=== PATIENT | male | born 1975 | race Caucasian/White ===

== ENCOUNTER 2016-06-23 09:05 | Day surgery (SDC) | payer OTHER ==
[~2016-06-23] VITALS: Ht 188 cm; Wt 100.0 kg
--- NOTE | ~2016-06-23 | OR ---
PATIENT'S NAME: NAEY CHENEY [facility] AGE: 40 Y [address] ROOM: [address] [address] LOCATION: [facility] ADMIT DATE: 06/23/2016 OR/Procedure Report DISCHARGE DATE: FAMILY PHYSICIAN: PHYSICIAN, NO ATTENDING PHYSICIAN: Clive Phillips SURGEON: Clive Phillips MD MANAGER FIELD INVESTIGATIONS: DATE OF PROCEDURE: 06/23/2016 PREOPERATIVE DIAGNOSIS: Left C6-7 disk herniation. POSTOPERATIVE DIAGNOSIS: Left C6-7 disk herniation. OPERATIONS PROPOSED AND PERFORMED: 1. Anterior cervical microdiskectomy, C6-7. 2. Anterior cervical fusion, C6-7. 3. Allograft. 4. Microscope. 5. Plating using the Inion absorbable plate. 6. Fluoroscopy with interpretation. DESCRIPTION OF PROCEDURE: Under general anesthesia, the patient was positioned supine. The neck was extended. The neck and upper chest were prepped and draped in the usual fashion. A curvilinear incision was then carried out extending from the anterior border of the sternomastoid muscle to the midline. The platysma was incised along this line, and we then continued our dissection in the plane between the sternomastoid and the strap muscles retracting the strap muscles away from the midline along with the esophagus and trachea. This got us to the prevertebral fascia. During this dissection, we were medial to the carotid artery and got into the prevertebral fascia. This was cauterized and incised and got us to the vertebral bodies and disk spaces, and a spinal needle was placed in one of the disk spaces. Lateral C- spine x-ray obtained showed that we were at the C6-C7 level. We made an incision into the disk so as to munir it. Next, the longus colli muscles were dissected away from their attachments to the vertebral bodies and the self- retaining retractor, the Dewaterer Operator was then used for retraction, making sure that the transverse blades were under the longus colli muscles. Next, the incision into the disk space was extended, took out as much disk as we could grossly. Next, the distractor rods were then screwed to the C6 and C7 vertebral bodies and the disk space was distracted. The microscope was brought in. With the aid of the microscope, we completely removed the disk and also had to remove the posterior longitudinal ligament and on exploring the neural foramina on the left side, there was a small fragment of disk material in the foramen that we were able to tease out and further exploration of the foramen did not yield any further disk material. The wound was PATIENT'S NAME: NAYE CHENEY [facility] AGE: 40 Y [address] ROOM: [place] [address] LOCATION: [facility] ADMIT DATE: 06/23/2016 OR/Procedure Report DISCHARGE DATE: FAMILY PHYSICIAN: NETTIE JACK ATTENDING PHYSICIAN: Clive Phillips thoroughly irrigated with bacitracin irrigation. Hemostasis was achieved by using Gelfoam that was soaked in thrombin and this aided the hemostasis. Next, we then removed the microscope and using the headlight, we he got the sizer, tapped it into the empty disk space in order to get the appropriate size allograft. We used the allograft that was 8 mm in height. We then tapped this into the empty disk space. After that was done, we released the distraction. We removed the screws, filled the space, the hole created by the screws with bone wax. Next, the soft tissue was removed from the anterior- inferior and the anterior-superior portions of the C6 and C7 vertebral bodies respectively. There were some osteophytes in the anterior-inferior portion of C6, which we removed. Next, we then got a template, which we used to get the appropriate length. Plate, we used a 29 mm plate. Next, we then brought the plate and put the plate in front of the vertebral bodies across the disk space. Used the plate holding pins to hold the plate in position. Next, the double-barrel guide was then placed over the pin and into the second hole, went ahead and drilled, tapped the vertebral body through the hole in the plate. Next, we left the tap in position, removed the plate holding pins on the opposite side and did the same thing with the guide and the pin was removed with still using the guide and then we drilled and tapped and then put the bone. The screw into screwed the plate onto the vertebral body. The tap on the other side was then removed and we put the screws in. Similar procedure was carried out over the C7 level and following this, we got a lateral fluoro of the C-spine and it shows that the graft as well as the screws and plate were in good position. The wound was thoroughly irrigated with bacitracin irrigation and closed in layers, first the platysma and then the skin. The patient tolerated the procedure well and was taken to the recovery room. MD ANGELA ROSALES/brody /[id number] d: 06/23/16 1728 t: 06/27/16 1206, OPERATIVE SUMMARY
[~2016-06-23 09:05] MED LIST: ASPIRIN325 MG PO; ROLAIDS CHEWAB1 EACH PO
--- NOTE | 2016-06-23 20:21 | NUR ---
Significant Event: TO ROOM AT 1435, C/O SLIGHT NUMBNESS L) INDEX FINGER, HAD PRE OP. CSM ALL EXTREM OK, DRSG D/I TO R)ANT NECK. VOIDING IN [place] [facility], HAD PERCOCET AND BENADRYL IN PACU....PERCOCET ORDER CHANAGED TO NORCO DUE TO ITCHING....HAD NORCO 2 TAB AT 1750... Follow up:
--- NOTE | 2016-06-24 07:11 | NUR ---
Significant Event: Dressing is clean, dry and intact. L) pointer finger is numb, but states that this is not new. 1 assist with transfers. Voids without difficulty. [place] last at 0559. Follow up:
[2016-06-24] MEDS ORDERED: FLEXERIL10 MG PO (12:56)
[2016-06-24] MEDS ORDERED: PERCOCET 5-3251 EACH PO (12:57)
[2016-06-24] MEDS ORDERED: NORCO 5-325 TA1 EACH PO (14:49)
--- NOTE | 2016-06-24 15:00 | NUR ---
D: Patient dismissed to home with spouse assistance. Taking analgesic prn for pain with relief. Neck incision approximated with christiana. CSM WNL except numbness to lt index finger. Ambulates ad tony, gait steady. Patient and spouse voice understanding of dismissal instruction. Dismissed with dismissal instructions, rx and belongings
== END 2016-06-24 15:00 | disposition disaster alternative care site (69) ==
LOC: G3N 09:05 → GSDC 09:05 → G3N 13:54 → GSDC 15:00
PROC: 0RG10K0 Fusion of Cervical Vertebral Joint with Nonautologous Tissue Substitute, Anterior Approach, Anterior Column, Open Approach (ICD-10-PCS; principal; 2016-06-23)
DX: M50.223 Other cervical disc displacement at C6-C7 level (principal); Z87.891 Personal history of nicotine dependence
CPT/HCPCS: C1713; J0690; J1100; J1200; J2250; J2270; J2405; J3370; J7030; J7120